=== PATIENT | female | born 1980 | race African-American/Black ===

== ENCOUNTER 2017-01-27 09:56 | Emergency (ER) | payer SELFPAY ==
[~2017-01-27] VITALS: Ht 165.1 cm; Wt 57.5 kg
[~2017-01-27 09:56] MED LIST: PERC5TAB12 PO; PROT40TA PO
[2017-01-27 09:57] VITALS: BP 116/83; PULSE 78; RESP 14; TEMP 98.1; O2SAT 99
--- NOTE | 2017-01-27 10:33 | PD ---
HPI . left pinky toe pain and foot pain since yesterday Chief Complaint: Injury Time Seen by Provider: 10:30 Travel History International Travel<30 days: No Contact w/Intl Traveler<30days: No Traveled to known affect area: No History of Present Illness HPI 36-year-old female here with complaints of left pinky toe pain and foot pain since yesterday. Patient says she hit it on an end table and it has been causing her pain ever since. She went to work standing on her feet all day and thinks this may have aggravated her pain. She tells me that she did not go to work today and decided to come to the emergency room because she wants to know if the toe and foot are broken. She will need a note for work. She admits to pain in the left pinky toe and lateral foot. She denies any other injuries. She is accompanied by her . PFSH Past Medical History Hx Anticoagulant Therapy: No Diabetes: No Diminished Hearing: No Gastrointestinal Disorders: No Immunizations Current: Yes ?: Not LMP: 01/16/17 Past Surgical History Other Surgery: No Social History Alcohol Use: No Tobacco Use: Yes (/2 PPD) Substance Use: No Allergies-Medications (Allergen,Severity, Reaction): Coded Allergies: Aspirin (Verified Allergy, Mild, AGITATION/NERVOUS, 01/27/17) Reported Meds & Prescriptions Reported Meds & Active Scripts Active Ibuprofen 800 Mg Tab 800 Mg PO TID Review of Systems General / Constitutional: No: Fever Eyes: No: Visual changes HENT: No: Headaches Cardiovascular: No: Chest Pain or Discomfort Respiratory: No: Shortness of Breath Gastrointestinal: No: Abdominal Pain Genitourinary: No: Dysuria Musculoskeletal: Positive: Pain (left pinky toe and foot pain) Skin: No Rash Neurologic: No: Weakness Psychiatric: No: Depression Endocrine: No: Polydipsia Hematologic/Lymphatic: No: Easy Bruising Physical Exam Narrative GENERAL: AAO x 3, no acute distress, Well-nourished, well-developed patient. SKIN: Warm and dry. No visible rashes or bruising. HEAD: Normocephalic and atraumatic. EYES: No scleral icterus. No injection or drainage. ENT: No nasal drainage noted. Airway patent. NECK: Supple, trachea midline. No JVD. CARDIOVASCULAR: Regular rate and rhythm without murmurs, gallops, or rubs. RESPIRATORY: Breath sounds equal bilaterally. No accessory muscle use. No rhonchi or rales. GASTROINTESTINAL: Visual inspection normal EXTREMITIES: No cyanosis or edema. No overt abnormality with the left pinky toe or foot. Tenderness to palpation on the left lateral distal foot. BACK: Nontender without obvious deformity. No CVA tenderness. PSYCH: AAO x 3, normal affect. Data Data Last Documented VS Vital Signs Date Time Temp Pulse Resp B/P Pulse Ox O2 Delivery O2 Flow Rate FiO2 01/27/17 10:56 Room Air 01/27/17 09:57 98.1 78 14 116/83 99 Orders Foot, Complete ([id number]) (01/27/17 10:33) Shoe Post Op (01/27/17 ) Crutches (01/27/17 11:03) ^ Other Nursing Orders (01/27/17 11:09) MDM Medical Decision Making Medical Screen Exam Complete: Yes Emergency Medical Condition: Yes Medical Record Reviewed: Yes Differential Diagnosis left pinky toe contusion, foot contusion, fracture, less likely dislocation Narrative Course 36-year-old female here with complaints of left pinky toe pain and foot pain since yesterday. Patient says she hit it on an end table and it has been causing her pain ever since. She went to work standing on her feet all day and thinks this may have aggravated her pain. She tells me that she did not go to work today and decided to come to the emergency room because she wants to know if the toe and foot are broken. She will need a note for work. She admits to pain in the left pinky toe and lateral foot. She denies any other injuries. She is accompanied by her . Patient seen and examined she appears to have a contusion of her left pinky toe. There is a possibility of fracture in the left lateral distal foot. I will go ahead and check an x-ray to rule out any bony normality. Xray reviewed; there is a fracture of the base of the pinky toe. Russel taped and placed in post op shoe and advised to f/u with podiatry. Patient verbalized understanding of instructions, questions were answered, and thanked me for their care. I advised them if their condition worsens, please return to the nearest emergency room for further care. 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 Follow up with your primary care provider. Take medications as prescribed. 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 Med/Other Pt SpecificInfo: Prescription(s) given Scripts Ibuprofen 800 Mg [id number] Mg PO TID #21 TAB Prov:Lisa Rodriges DO 01/27/17 Disposition: 01 DISCHARGE HOME Condition: Stable Janell Walker January 27, 2017 10:32
[2017-01-27] MEDS ORDERED: IBUP800T23 PO (10:37)
--- NOTE | 2017-01-27 10:55 | RADRPT ---
EXAM DATE/TIME: 01/27/2017 10:43 [facility] COMPARISON: FOOT LEFT COMPLETE ([id number]), May 15, 2013, 10:35. INDICATIONS : Left lateral foot pain for 2 days after hitting it on a night stand. MEDICAL HISTORY : None. SURGICAL HISTORY : None. ENCOUNTER: Initial ACUITY: 2 days PAIN SCORE: 8/10 LOCATION: Left lateral foot. FINDINGS: 3 views left foot. Fracture of the base of the fifth toe proximal phalanx with at the far medial drea in. The fracture extends into the metatarsophalangeal joint. Bone fragment measures 4 mm. CONCLUSION: 4 mm intra-articular fracture of the medial base of the fifth toe proximal phalanx with 2 mm displace ment. Stephen Mcgraw MD on January 27, 2017 at 10:50 Board Certified Radiologist. This report was verified electronically.
== END 2017-01-27 11:40 | disposition home or self-care (01) ==
LOC: NEPK 09:56
DX: S92.512A Displaced fracture of proximal phalanx of left lesser toe(s), initial encounter for closed fracture (principal); F17.210 Nicotine dependence, cigarettes, uncomplicated; W22.03XA Walked into furniture, initial encounter
CPT/HCPCS: 73630; 99283; E0113; L3260

== ENCOUNTER 2017-08-11 16:00 | Emergency (ER) | payer SELFPAY ==
[~2017-08-11] VITALS: Ht 165.1 cm; Wt 56.5 kg
[~2017-08-11 16:00] MED LIST changes: +IBUP1TAB7 PO; -PERC5TAB12 PO; -PROT40TA PO
[2017-08-11 16:01] VITALS: BP 121/85; PULSE 105; RESP 20; TEMP 99.8; O2SAT 100
[2017-08-11] MEDS ORDERED: LIDOCAINE 1%/EPINEPHrine 1:100,000 SOLN 20 ML VIAL INFIL ONE (17:00)
--- NOTE | 2017-08-11 17:11 | PD ---
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 States it started off as a small pimple and it has expanded in size greatly. She has not done anything or taken anything for symptoms. Patient is history of abscesses and several other areas. She denies fever, chills, nausea, vomiting. No chronic medical conditions or daily medications. PFSH Past Medical History Hx Anticoagulant Therapy: No Diabetes: No Diminished Hearing: No Gastrointestinal Disorders: No Immunizations Current: Yes ?: Not Past Surgical History Other Surgery: No Social History Alcohol Use: No Tobacco Use: Yes (1/2 PPD) Substance Use: No Allergies-Medications (Allergen,Severity, Reaction): Coded Allergies: No Known Allergies (Unverified , 08/11/17) Reported Meds & Prescriptions Reported Meds & Active Scripts Active No Active Prescriptions or Reported Medications Review of Systems Except as stated in HPI: all other systems reviewed are Neg Physical Exam Narrative GENERAL: Well-nourished, well-developed female in no acute distress. Afebrile. Ambulatory. SKIN: Focused skin assessment warm/dry. There is an indurated area in the right groin which measures about 3 cm in diameter. It is fluctuant with pointing but no drainage. There is a zone of inflammation around it but no lymphangitis. HEAD: Normocephalic. EYES: No scleral icterus. No injection or drainage. NECK: Supple, trachea midline. No JVD or lymphadenopathy. CARDIOVASCULAR: Regular rate and rhythm without murmurs, gallops, or rubs. RESPIRATORY: Breath sounds equal bilaterally. No accessory muscle use. PSYCHIATRIC: No delusional thought processes. No hallucinations. Data Data Last Documented VS Vital Signs Date Time Temp Pulse Resp B/P (MAP) Pulse Ox O2 Delivery O2 Flow Rate FiO2 08/11/17 16:01 99.8 105 20 121/85 (97) 100 Room Air Orders Orders Lidocai-Epi 1%-1:100,000 Inj (Xylocaine- (08/11/17 17:00) MDM Medical Decision Making Medical Screen Exam Complete: Yes Emergency Medical Condition: Yes Medical Record Reviewed: Yes Differential Diagnosis Abscess, hidradenitis suppurativa, cellulitis Narrative Course 37-year-old female presents to the emergency room for evaluation of a groin abscess that she first noticed 4 days ago. Started off as a small pimple and rapidly grew. She has history of similar in the past. No systemic signs of infection. Vital signs stable. Patient resting comfortably. Physical exam reveals a 3 from an area of induration in the right proximal groin with pointing but no drainage. Abscess was drained, see procedure note for details. Patient discharged with prescription for Bactrim and told to follow up with PCP or return for worsening symptoms. She understands and agrees to plan. Procedures Procedure Narrative INCISION AND DRAINAGE OF ABSCESS: The area was prepped and was sterilely draped. A subcutaneous wheal of percent lidocaine with epinephrine with a total number 2 mL was used to anesthetize the area properly. A number 11 scalpel was used to make a 1 cm incision across the area of the abscess. The abscess was drained, complex loculations were broken down, and irrigated with normal saline. Sterile dressing applied. Diagnosis Primary Impression: Groin abscess Referrals: Primary Care Physician Additional Instructions: Rest and drink plenty of fluids. Take Bactrim as directed, until gone. Follow up with a primary care physician. Return to emergency room for worsening symptoms, as discussed. Med/Other Pt SpecificInfo: Prescription(s) given Scripts No Active Prescriptions or Reported Meds Disposition: 01 DISCHARGE HOME Condition: Stable Dejah Mena Aug 11, 2017 17:11
[2017-08-11] MEDS ORDERED: BACT800T5 PO (17:12)
== END 2017-08-11 17:47 | disposition home or self-care (01) ==
LOC: NEPD 16:00
DX: L02.214 Cutaneous abscess of groin (principal); F17.200 Nicotine dependence, unspecified, uncomplicated
CPT/HCPCS: 10060